=== PATIENT | male | born 1960 | race Caucasian/White ===

== ENCOUNTER 2018-12-23 16:49 | Emergency (ER) | payer SELFPAY ==
--- NOTE | 2018-12-23 19:55 | NUR ---
X-RAY AT BEDSIDE.
[2018-12-23] MEDS ORDERED: PIPERACILLIN/TAZOBACTAM 3.375 GM VIAL IV ONE (20:47)
[2018-12-23] MEDS ORDERED: KETOROLAC 30 MG/ML VIAL ONE (20:47)
[2018-12-23] MEDS ORDERED: PIPERACILLIN/TAZOBACTAM 3.375 GM in DEXTROSE 5% 50 ML IV ONE (21:05)
[2018-12-23] MEDS ORDERED: NACL 0.9% 1,000 ML IV ONE (21:05)
[2018-12-23 21:13] LABS: ANION GAP 6.9 (8-16); CARBON DIOXIDE 32.4 mmol/L (21-32); POTASSIUM 4.3 mmol/L (3.5-5.1)
[2018-12-23 21:14] LABS: ALBUMIN 3.6 g/dL (3.4-5.0); TOTAL BILIRUBIN 7.7 mg/dL (0.0-1.0)
[2018-12-23 21:49] LABS: BASOPHILS % (AUTO) 0.1 % (0.0-2.0); EOSINOPHILS # (AUTO) 0.1 K/uL (0-0.4); HEMATOCRIT 46.5 % (36-52); HEMOGLOBIN 15.1 g/dL (12.0-18.0); LYMPHOCYTES # (AUTO) 1.1 K/uL (2.0-11.5); LYMPHOCYTES % (AUTO) 14.9 % (20.5-51.1); MEAN CORPUSCULAR HEMOGLOBIN 29 pg (27-31); MEAN CORPUSCULAR HGB CONC 32 g/dL (33-37); MEAN CORPUSCULAR VOLUME 88.9 fL (80-94); MONOCYTES # (AUTO) 0.5 K/uL (0.8-1.0); NEUTROPHILS # (AUTO) 5.9 K/uL (1.8-7.7); PLATELET COUNT (AUTO) 302 K/uL (140-450); RED BLOOD CELL COUNT(AUTO) 5.23 MIL/uL (4.20-6.10); RED CELL DISTRIBUTION WIDTH 13.9 % (11.6-13.7); WHITE BLOOD COUNT (AUTO) 7.7 K/uL (4.8-10.8)
[2018-12-23 22:05] VITALS: BP 130/98
--- NOTE | 2018-12-23 22:05 | NUR ---
Patient discharged with v/s stable. Written and verbal after care instructions given and explained. Patient alert, oriented and verbalized understanding of instructions. Ambulatory with steady gait. All questions addressed prior to discharge. ID band removed. Patient advised to follow up with PMD. Rx of Keflex, Bactrim, and Motrin given. Patient educated on indication of medication including possible reaction and side effects. Opportunity to ask questions provided and answered.
== END 2018-12-23 22:05 | disposition home or self-care (01) ==
LOC: MED 16:49
DX: L03.115 Cellulitis of right lower limb (principal); I10 Essential (primary) hypertension; E80.7 Disorder of bilirubin metabolism, unspecified; Z88.0 Allergy status to penicillin
CPT/HCPCS: 36415; 73630; 80053; 83605; 85025; 87040; 96365; 99284; J1885; J2543; J7030; Q0092

== ENCOUNTER 2019-01-05 00:07 | Emergency (ER) | payer SELFPAY ==
[~2019-01-05] VITALS: Ht 180.3 cm; Wt 70.3 kg
[2019-01-05 00:07] VITALS: BP 130/81
--- NOTE | 2019-01-05 00:07 | NUR ---
PATIENT BIB ALS TO ER BED 2.
--- NOTE | 2019-01-05 00:15 | NUR ---
PATIENT IS A 58 Y/O MALE WHO PRESENTS TO THE ED FOR DIZZINESS. PT STATES THAT HE WAS PLAYING PING PONG WHEN HE FELT THE ROOM SPINNING. PT DENIES PAIN AT THIS TIME. PT WAS GIVEN 8MG ZOFRAN IV. PT DENIES CP, SOB, REPORTS NAUSEA/VOMITING DENIES DIARRHEA. PT AWAKE AND ALERT, RR EVEN/UNLABORED. PT REPOSITIONED FOR COMFORT, BED IN LOWEST POSITION. ER MD DR. GOSS NOTIFIED. WILL CONTINUE TO MONITOR.
[2019-01-05] MEDS ORDERED: MECLIZINE 25 MG TAB PO ONE (00:25)
[2019-01-05] MEDS ORDERED: NACL 0.9% 1,000 ML IV ONE (00:25)
[2019-01-05 01:23] LABS: BASOPHILS % (AUTO) 0.3 % (0.0-2.0); EOSINOPHILS # (AUTO) 0.1 K/uL (0-0.4); EOSINOPHILS % (AUTO) 1.2 % (0.0-4.0); HEMOGLOBIN 13.6 g/dL (12.0-18.0); LYMPHOCYTES # (AUTO) 0.9 K/uL (2.0-11.5); LYMPHOCYTES % (AUTO) 15.7 % (20.5-51.1); MEAN CORPUSCULAR HEMOGLOBIN 29 pg (27-31); MEAN CORPUSCULAR HGB CONC 32 g/dL (33-37); MEAN CORPUSCULAR VOLUME 88.3 fL (80-94); MONOCYTES # (AUTO) 0.3 K/uL (0.8-1.0); MONOCYTES % (AUTO) 5.2 % (1.7-9.3); NEUTROPHILS # (AUTO) 4.5 K/uL (1.8-7.7); NEUTROPHILS % (AUTO) 77.6 % (42.2-75.2); PLATELET COUNT (AUTO) 267 K/uL (140-450); RED BLOOD CELL COUNT(AUTO) 4.76 MIL/uL (4.20-6.10); RED CELL DISTRIBUTION WIDTH 13.9 % (11.6-13.7); WHITE BLOOD COUNT (AUTO) 5.8 K/uL (4.8-10.8)
--- NOTE | 2019-01-05 01:30 | NUR ---
PT UNABL TO URINATE, EDMD MADE AWARE, PT REFUSED STRAIGHT CATH AT THIS TIME
--- NOTE | 2019-01-05 01:30 | NUR ---
PT ON BED IN SUPINE POSITION, EYES OPEN, RESPIS E/U, NO COMPLAINTS OF CP AT THIS TIME. FULL MONITOR ON, NO IDENTIFIED REQUESTS.
[2019-01-05 01:33] LABS: ANION GAP 6.7 (8-16); CARBON DIOXIDE 32.4 mmol/L (21-32); CHLORIDE 110 mmol/L (98-107); CREATININE 1.3 mg/dL (0.7-1.3); GFR ARICAN-AMERICAN 73 mL/min (>90); GLUCOSE 87 mg/dL (74-106); POTASSIUM 4.1 mmol/L (3.5-5.1); SODIUM SERUM 145 mmol/L (136-145); UREA NITROGEN, BLOOD 20 mg/dL (7-18)
[2019-01-05 01:39] LABS: ALBUMIN 3.3 g/dL (3.4-5.0); ASPARTATE AMINOTRANSFERASE 17 U/L (15-37); TOTAL BILIRUBIN 0.2 mg/dL (0.0-1.0)
[2019-01-05 01:40] LABS: ACETAMINOPHEN < 0.5 ug/ml (10-30); SALICYLATE < 2.8 mg/dL (2.8-20.0)
--- NOTE | 2019-01-05 02:06 | NUR ---
URINE COLLECTED AT THIS TIME
[2019-01-05 02:18] LABS: APPEARANCE,URINE CLEAR (CLEAR); BILIRUBIN,URINE NEGATIVE (NEGATIVE); BLOOD, URINE NEGATIVE (NEGATIVE); COLOR,URINE YELLOW (YELLOW); LEUKOCYTE ESTERASE ,URINE NEGATIVE (NEGATIVE); NITRITE, URINE NEGATIVE (NEGATIVE); PH,URINE 6.5 (5.0-9.0); UGLUCOSE NEGATIVE (NEGATIVE)
[2019-01-05 02:25] LABS: BARBITURATE, URINE NEG. ng/ml (NEG <=200); BENZODIAZEPINE, URINE NEG. ng/mL (NEG <=200); CANNABINOID, URINE POS. ng/mL (NEG <=50); COCAINE, URINE NEG. ng/mL (NEG <=300); OPIATE, URINE NEG. ng/mL (NEG <=2000); PHENCYCLIDINE SCREEN,URINE NEG. ng/mL (NEG <=25)
--- NOTE | 2019-01-05 02:30 | NUR ---
PT ON BED IN SUPINE POSITION, EYES OPEN, RESPIS E/U, NO COMPLAINTS OF CP AT THIS TIME. FULL MONITOR ON, NO IDENTIFIED REQUESTS.
[2019-01-05 02:38] VITALS: BP 138/92
== END 2019-01-05 02:38 | disposition home or self-care (01) ==
LOC: MED 00:07
DX: E86.0 Dehydration (principal); F17.200 Nicotine dependence, unspecified, uncomplicated; F10.10 Alcohol abuse, uncomplicated; Z88.0 Allergy status to penicillin; Y90.0 Blood alcohol level of less than 20 mg/100 ml
CPT/HCPCS: 36415; 80053; 80305; 81003; 85025; 93005; 96360; 99284; G0480; G0482; J7030; J8597

== ENCOUNTER 2022-11-30 14:27 | Emergency (ER) | payer OTHER ==
[~2022-11-30] VITALS: Ht 180.3 cm; Wt 73.5 kg
--- NOTE | 2022-11-30 14:44 | NUR ---
CALLED FOR PT IN LOBBY AND OUTSIDE, NO ANSWER.
[2022-11-30 15:01] VITALS: BP 128/86
[2022-11-30 16:53] LABS: BASOPHILS # (AUTO) 0.1 K/uL (0.00-0.22); EOSINOPHILS # (AUTO) 0.1 K/uL (0-0.4); EOSINOPHILS % (AUTO) 2.3 % (0.0-4.0); HEMATOCRIT 44.3 % (36-52); HEMOGLOBIN 15.1 g/dL (12.0-18.0); LYMPHOCYTES # (AUTO) 1.1 K/uL (2.0-11.5); MEAN CORPUSCULAR HEMOGLOBIN 30 pg (27-31); MEAN CORPUSCULAR HGB CONC 34 g/dL (33-37); MEAN CORPUSCULAR VOLUME 86.4 fL (80-94); MONOCYTES # (AUTO) 0.3 K/uL (0.8-1.0); MONOCYTES % (AUTO) 5.3 % (1.7-9.3); NEUTROPHILS # (AUTO) 3.7 K/uL (1.8-7.7); NEUTROPHILS % (AUTO) 70.4 % (42.2-75.2); PLATELET COUNT (AUTO) 278 K/uL (140-450); RED BLOOD CELL COUNT(AUTO) 5.13 MIL/uL (4.20-6.10); RED CELL DISTRIBUTION WIDTH 13.6 % (11.6-13.7); WHITE BLOOD COUNT (AUTO) 5.3 K/uL (4.8-10.8)
[2022-11-30] MEDS ORDERED: MECL-303 PO (16:55)
[2022-11-30 17:07] LABS: ANION GAP 11.2 (8-16); CARBON DIOXIDE 29.8 mmol/L (21-32); CREATININE 1.1 mg/dL (0.6-1.3)
--- NOTE | 2022-11-30 19:00 | NUR ---
PATIENT PRESENTS TO ED WITH NECK PAIN . PT STATES PAIN IS INTERMITTENT . DENIES N/V/D; SKIN IS PINK/WARM/DRY; AAOX4 WITH EVEN AND STEADY GAIT; LUNGS CLEAR BL; HR EVEN AND REGULAR; PT DENIES ANY FEVER, CP, SOB, OR COUGH AT THIS TIME; PATIENT STATES PAIN OF 0/10 AT THIS TIME; VSS;
[2022-11-30 19:33] VITALS: BP 121/79
--- NOTE | 2022-11-30 19:34 | NUR ---
Patient discharged with v/s stable. Written and verbal after care instructions given and explained. Patient verbalized understanding. Ambulatory with steady gait. All questions addressed prior to discharge. Advised to follow up with PMD.
== END 2022-11-30 19:34 | disposition home or self-care (01) ==
LOC: MED 14:27
DX: R42 Dizziness and giddiness (principal); M54.2 Cervicalgia; Z79.899 Other long term (current) drug therapy; Z88.0 Allergy status to penicillin
CPT/HCPCS: 36415; 80048; 84443; 85025; 99283

== ENCOUNTER 2023-01-14 03:12 | Emergency (ER) | payer OTHER ==
[~2023-01-14] VITALS: Ht 182.9 cm; Wt 73.9 kg
[~2023-01-14 03:12] MED LIST: MECL-303 PO
[2023-01-14 03:19] VITALS: BP 158/91
--- NOTE | 2023-01-14 03:25 | NUR ---
to bed 12
--- NOTE | 2023-01-14 03:27 | NUR ---
Dr. Lorenzo evaluating pt
[2023-01-14] MEDS ORDERED: KETOROLAC 60 MG/2 ML VIAL IM ONE ×2 (03:30→05:04)
[2023-01-14] MEDS ORDERED: MORPHINE SULFATE 4 MG/ML SYR IM ONE (03:30)
--- NOTE | 2023-01-14 03:50 | NUR ---
MEDICATED ORDERED FOR PAIN
--- NOTE | 2023-01-14 05:00 | NUR ---
PT TAKEN OFF MONITOR AND WENT TO THE RESTROOM
[2023-01-14] MEDS ORDERED: CELE100C PO (05:18)
[2023-01-14 05:31] VITALS: BP 158/91
--- NOTE | 2023-01-14 05:31 | NUR ---
Patient discharged with v/s stable. Written and verbal after care instructions given and explained. Patient alert, oriented and verbalized understanding of instructions. Ambulatory with steady gait. All questions addressed prior to discharge. ID band removed. Patient advised to follow up with PMD. Rx of CELEBREX given. Patient educated on indication of medication including possible reaction and side effects. Opportunity to ask questions provided and answered.
== END 2023-01-14 05:31 | disposition home or self-care (01) ==
LOC: MED 03:12
DX: M13.88 Other specified arthritis, other site (principal); Z88.0 Allergy status to penicillin; Z79.899 Other long term (current) drug therapy; Z98.890 Other specified postprocedural states
CPT/HCPCS: 96372; 99284; J1885; J2270